=== PATIENT | male | born 1990 | race African-American/Black ===

== ENCOUNTER 2020-09-10 10:13 | Emergency (ER) | payer MEDICAID ==
[~2020-09-10] VITALS: Ht 177.8 cm; Wt 136.3 kg
[2020-09-10] MEDS ORDERED: MORPHINE SULFATE 4 MG/ML VIAL. IM ONE (11:30)
[2020-09-10] MEDS ORDERED: ORPHENADRINE CITRATE 60 MG/2 ML VIAL. IM ONE (11:30)
[2020-09-10] MEDS ORDERED: DEXAMETHASONE 4 MG TABLET PO ONE (11:30)
--- NOTE | 2020-09-10 11:44 | PHYS DOC ---
Past Medical History Past Medical History: Anxiety, Depression, Other Additional Past Medical Histor: sciatica, PTSD Past Surgical History: No Surgical History Smoking Status: Never Smoker Alcohol Use: Occasionally General Adult EDM: Chief Complaint: BACK PAIN OR INJURY HPI: HPI: Patient is a 30 year old male who presents with states that about a week ago he had mid low back pain and he went to [facility] he was given [place] and naproxen to take. He states that today he went to stand up and he felt a pop in his back and now he has right lower back pain with sharp shooting pain that goes down the right leg and some tingling in the foot. Patient states that the [place] does not help his pain. He states that tramadol helps his pain better. He states he took tramadol and naproxen this morning. Patient states he supposed to be in physical therapy but has never gone. He has a history of anxiety, depression, sciatica, PTSD. Patient's girlfriend is here with him and is answering a lot of the questions. Patient does not seem to make eye contact or answer my questions and looks to his girlfriend to answer everything. Patient is rating his pain a 10 out of 10. He denies loss of bowel bladder, urinary retention, or focal weakness. Review of Systems: Review of Systems: Constitutional: Denies fever or chills. [] Eyes: Denies change in visual acuity. [] HENT: Denies nasal congestion or sore throat. [] Respiratory: Denies cough or shortness of breath. [] Cardiovascular: Denies chest pain or edema. [] GI: Denies abdominal pain, nausea, vomiting, bloody stools or diarrhea. [] : Denies dysuria. [] Musculoskeletal: + Right lower with radiation down right leg back pain or joint pain. [] Integument: Denies rash. [] Neurologic: Denies headache, focal weakness or sensory changes. + Tingling right foot [] Endocrine: Denies polyuria or polydipsia. [] Lymphatic: Denies swollen glands. [] Psychiatric: Denies depression or anxiety. [] Heart Score: C/O Chest Pain: No Risk Factors: Risk Factors: DM, Current or recent (<one month) smoker, HTN, HLP, family hist ory of CAD, obesity. Risk Scores: Score 0 - 3: 2.5% MACE over next 6 weeks - Discharge Home Score 4 - 6: 20.3% MACE over next 6 weeks - Admit for Clinical Observation Score 7 - 10: 72.7% MACE over next 6 weeks - Early Invasive Strategies Current Medications: Current Medications Medications (Trade) Dose Ordered Sig/Magaly Start Time Stop Time Status Last Admin Dose Admin Dexamethasone (Decadron) 10 mg 1X ONCE 09/10/20 11:30 09/10/20 11:31 DC Morphine Sulfate (Morphine Sulfate) 4 mg 1X ONCE 09/10/20 11:30 09/10/20 11:31 DC Orphenadrine Citrate (Norflex) 60 mg 1X ONCE 09/10/20 11:30 09/10/20 11:31 DC Allergies: Allergies: Allergies Coded Allergies Type Severity Reaction Last Updated Verified No Known Drug Allergies 09/10/20 No Physical Exam: PE: Constitutional: Well developed, well nourished, no acute distress, non-toxic appearance. [] HENT: Normocephalic, atraumatic, bilateral external ears normal, oropharynx moist, no oral exudates, nose normal. [] Eyes: PERRLA, EOMI, conjunctiva normal, no discharge. [] Neck: Normal range of motion, no tenderness, supple, no stridor. [] Cardiovascular:Heart rate regular rhythm, no murmur [] Lungs & Thorax: Bilateral breath sounds clear to auscultation [] Abdomen: Bowel sounds normal, soft, no tenderness, no masses, no pulsatile masses. [] Skin: Warm, dry, no erythema, no rash. [] Back: Right lower back tenderness, no CVA tenderness. [] Extremities: No tenderness, no cyanosis, no clubbing, ROM intact, no edema. [] Neurologic: Alert and oriented X 3, normal motor function, normal sensory function, no focal deficits noted. [] Psychologic: Affect normal, judgement normal, mood normal. [] Current Patient Data: Vital Signs: Vital Signs Date Time Temp Pulse Resp B/P (MAP) Pulse Ox O2 Delivery O2 Flow Rate FiO2 09/10/20 10:27 99.0 63 20 172/103 (126) 95 Room Air 99.0 EKG: EKG: [] Radiology/Procedures: Radiology/Procedures: [] Impression: [facility] [address] [place] [address] IMAGING REPORT Signed PATIENT: GAMALIEL VALLES MACCOUNT: [id number] : 1990 LOCATION: ER AGE: 30 SEX: M EXAM STATUS: REG ER ORD. PHYSICIAN: LILI RANDALL APRN REASON: low back pain with sciatica, numbness PROCEDURE: CT LUMBAR SPINE WO CONTRAST Noncontrast CT scan of the lumbar spine without comparison for low back pain with sciatica, numbness. TECHNIQUE: Contiguous axial CT images are obtained through the lumbar spine. Sagittal and coronal reformations are evaluated. FINDINGS: There is no fracture, or acute osseous or alignment abnormality identified. There is narrowing of L5-S1, with a posterior disc osteophyte complex is not seen to great advantage due to lack of intrathecal and IV contrast. This could be characterized with MRI of the lumbar spine. At T12-L1, there is no bony central canal stenosis or neural foraminal narrowing, mild facet arthrosis. At L1-2, no bony central canal stenosis or neuroforaminal narrowing, mild facet arthrosis. At L2-3, no bony central canal stenosis or neuroforaminal narrowing, mild facet arthrosis. At L3-4, no bony central canal stenosis or neuroforaminal narrowing, minimal facet arthrosis, mild asymmetric ligamentum flavum hypertrophy on the right. At L4-5, no bony central canal or neural foraminal stenosis. There is a fusiform disc bulge at this level. Minimal facet arthrosis. L5-S1, there is a bulky fusiform disc osteophyte complex which appears to abut and possibly efface the anterior thecal sac. There may be narrowing of both neural foramina, left greater than right, possibly resulting in compression of the transiting left S1 nerve root. Minimal facet arthrosis. IMPRESSION: 1. No acute osseous abnormality of the lumbar spine. 2. Degenerative disc disease at L4-5 and L5-S1, with findings at L5-S1 concerning for bony central canal and/or neural foraminal stenosis and possible nerve root impingement on the left. Consider further evaluation with MRI. PQRS Compliance Statement: One or more of the following individualized dose reduction techniques were utilized for this examination: 1. Automated exposure control 2. Adjustment of the mA and/or kV according to patient size 3. Use of iterative reconstruction technique Electronically signed by: Guy Benton MD (09/10/2020 12:18 PM) [id number] DICTATED and SIGNED BY: GUY BENTON MD DATE: 09/10/20 [id number] 0 Course & Med Decision Making: Course & Med Decision Making Pertinent Labs and Imaging studies reviewed. (See chart for details) See HPI. No saddle paresthesia. No swelling in the extremities. Right lower back tenderness with palpation. No focal bony spinal tenderness or deformity is felt. There is no bruising to his back. He denies any abdominal pain, nausea, vomiting, chest pain, shortness of air, dizziness, headache, fever, urinary symptoms. Full strengths in range of motions in all extremities. He is given dexamethasone, morphine IM, Norflex in the ED. [] Dragon Disclaimer: Dragon Disclaimer: This electronic medical record was generated, in whole or in part, using a voice recognition dictation system. Departure Departure Impression: Primary Impression: Back pain Qualified Codes: M54.41 - Lumbago with sciatica, right side Disposition: 01 DC HOME SELF CARE/HOMELESS Referrals: NO PCP (PCP) JESSY GUPTA MD Patient Instructions: Back Pain, Adult, Degenerative Disk Disease, Sciatica with Rehab-SportsMed Additional Instructions: Follow-up with your primary care provider or I have referred you to a spinal doctor that you can follow-up with. Rest. Take medication as prescribed and with food. If you lose your bowel or bladder, or have focal weakness return to the emergency room immediately. Go to physical therapy as you have been told in the past as this will help. Scripts Tramadol Hcl (TRAMADOL HCL) 50 Mg Tablet 50 MG PO Q6HRS PRN for PAIN, #10 TAB Prov: LILI RANDALL STOCKING INSPECTOR 09/10/20 Methylprednisolone (MEDROL) 4 Mg Tab.ds.pk 1 PKG PO UD, #1 PKG Prov: LILI RANDALL STOCKING INSPECTOR 09/10/20 LILI RANDALL APRN Sep 10, 2020 11:44
[2020-09-10 12:17] LABS: BILIRUBIN,URINE NEGATIVE (NEG); CLARITY,URINE CLEAR; COLOR,URINE YELLOW; NITRITE,URINE NEGATIVE (NEG); PH,URINE 6.5 (<5.0-8.0); PROTEIN,URINE NEGATIVE (NEG-TRACE)
--- NOTE | 2020-09-10 12:20 | RAD ---
Noncontrast CT scan of the lumbar spine without comparison for low back pain with sciatica, numbness. TECHNIQUE: Contiguous axial CT images are obtained through the lumbar spine. Sagittal and coronal ref ormations are evaluated. FINDINGS: There is no fracture, or acute osseous or alignment abnormality identified. There is narrow ing of L5-S1, with a posterior disc osteophyte complex is not seen to great advantage due to lack of intrathecal and IV contrast. This could be characterized with MRI of the lumbar spine. At T12-L1, there is no bony central canal stenosis or neural foraminal narrowing, mild facet arthrosi s. At L1-2, no bony central canal stenosis or neuroforaminal narrowing, mild facet arthrosis. At L2-3, no bony central canal stenosis or neuroforaminal narrowing, mild facet arthrosis. At L3-4, no bony central canal stenosis or neuroforaminal narrowing, minimal facet arthrosis, mild as ymmetric ligamentum flavum hypertrophy on the right. At L4-5, no bony central canal or neural foraminal stenosis. There is a fusiform disc bulge at this l evel. Minimal facet arthrosis. L5-S1, there is a bulky fusiform disc osteophyte complex which appears to abut and possibly efface th e anterior thecal sac. There may be narrowing of both neural foramina, left greater than right, possi lawanda resulting in compression of the transiting left S1 nerve root. Minimal facet arthrosis. IMPRESSION: 1. No acute osseous abnormality of the lumbar spine. 2. Degenerative disc disease at L4-5 and L5-S1, with findings at L5-S1 concerning for bony central ca nal and/or neural foraminal stenosis and possible nerve root impingement on the left. Consider furthe r evaluation with MRI. PQRS Compliance Statement: One or more of the following individualized dose reduction techniques were utilized for this examinat ion: 1. Automated exposure control 2. Adjustment of the mA and/or kV according to patient size 3. Use of iterative reconstruction technique Electronically signed by: Guy Covarrubias MD (09/10/2020 12:18 PM) [id number]
[2020-09-10 12:39] LABS: WBC,URINE OCC /HPF (0-4)
[2020-09-10 12:40] LABS: BACTERIA,URINE FEW /HPF (0-FEW)
[2020-09-10] MEDS ORDERED: TRAM50TA PO (12:53)
[2020-09-10] MEDS ORDERED: METH4TAB2 PO (12:53)
[2020-09-10 13:30] VITALS: BP 140/84
== END 2020-09-10 13:30 | disposition home or self-care (01) ==
LOC: ER 10:13 → MERGE 10:13 → ER 13:30
DX: M54.41 Lumbago with sciatica, right side (principal); R20.2 Paresthesia of skin; F41.9 Anxiety disorder, unspecified; F32.9 Major depressive disorder, single episode, unspecified
CPT/HCPCS: 72131; 81001; 87086; 96372; 99284; J2270; J2360

== ENCOUNTER 2021-04-10 00:25 | Emergency (ER) | payer MEDICAID ==
[~2021-04-10 00:25] MED LIST: METH4TAB2 PO; TRAM50TA PO
== END 2021-04-10 00:29 | disposition left against medical advice (07) ==
LOC: ER 00:25
DX: R10.12 Left upper quadrant pain (principal); Z53.21 Procedure and treatment not carried out due to patient leaving prior to being seen by health care provider